=== PATIENT | female | born 1960 | race Caucasian/White ===

== ENCOUNTER 2020-10-09 09:27 | Inpatient (IN) ==
[2020-10-09] MEDS ORDERED: SODIUM CHLORIDE 0.9% 2,000 ML IV STA (09:44)
[2020-10-09] MEDS ORDERED: INSULIN REGULAR 100 UNIT/ML IV STA (09:46)
[2020-10-09] MEDS ORDERED: SODIUM BICARBONATE 50 MEQ/50 ML VIAL IV STA ×3 (09:46→09:55)
[2020-10-09] MEDS ORDERED: SODIUM BICARBONATE 50 MEQ/50 ML VIAL IV ONE ×3 (09:47→17:40)
[2020-10-09] MEDS ORDERED: INSULIN REGULAR 100 UNIT/ML ONE (09:48)
[2020-10-09 09:55] LABS: ABG HCO3 3.8 MMOL/L (20-26); ABG PCO2 12.7 MM HG (35-48); ABG PH 6.735 (7.35-7.45)
[2020-10-09 09:56] LABS: ABG Oxygen Saturation 96.2 % (95-100); ABG TCO2 1.8 MMOL/L (23-27)
[2020-10-09 09:58] LABS: ABG Base Excess 1.8 MMOL/L (-2.5-2.5)
[2020-10-09] MEDS ORDERED: NOREPINEPHRINE 4 MG/4 ML VIAL IV ONE (10:01)
[2020-10-09 10:02] LABS: Basophils # 0.3 10*3/uL (0.0-0.2); Basophils % 0.7 % (0.0-0.8); Eosinophils # 0.1 10*3/uL (0.0-0.87); Eosinophils % 0.3 % (0.00-10.9); Hematocrit 51.7 VOL% (35.7-47.0); Hemoglobin 15.2 GM/DL (12.0-16.0); Immature Granulocytes % 7.8 %; Immature Granulocytes Absolute 3.03 #; Lymphocytes # 5.4 10*3/uL (1.4-4.0); Lymphocytes % 13.9 % (21.3-54.2); Mean Corpuscular HGB Conc 29.4 GM/DL (32-36); Mean Platelet Volume 10.1 FL (9.6-12.0); Monocytes % 7.5 % (1.7-12.7); Neutrophils % 69.8 % (38.7-73.9); Platelet Count 464 T/CUMM (130-400); Red Blood Count 5.22 MC/CUMM (3.8-5.5); Red Cell Distribution Width 12.1 % (9.3-17.3); White Blood Count 38.8 T/CUMM (4-12)
[2020-10-09] MEDS ORDERED: cefTRIAXone 1,000 MG VIAL ONE (10:02)
[2020-10-09 10:11] LABS: PT Patient Result 10.4 SECS (9.8-11.9)
[2020-10-09] MEDS ORDERED: ETOMIDATE 20 MG/10 ML VIAL IV ONE (10:11)
[2020-10-09] MEDS ORDERED: ROCURONIUM 100 MG/10 ML VIAL IV ONE (10:11)
[2020-10-09] MEDS ORDERED: cefTRIAXone 2,000 MG in SODIUM CHLORIDE 0.9% 100 ML IV ONE (10:13)
[2020-10-09 10:14] LABS: Amorphous Crystals,Urine Few /HPF (Few); Bilirubin,Urine Negative (Negative); Blood, Urine Moderate mg/dL (Negative); Glucose,Urine (UA) >=500 mg/dL (Negative); Ketones,Urine 20 mg/dL (Negative); Mucus,Urine Occasional /LPF (Occasional); Nitrite,Urine Negative (Negative); Protein,Urine Negative; Squamous Epithelial Cell,Urine Occasional /HPF (0-10); Urine Appearance CLOUDY (Clear); Urine Color Yellow (Yellow); Urine Specific Gravity 1.022 (1.001-1.035); Urine Urobilinogen < 2.0 EU/DL (0.2-1.0)
[2020-10-09 10:20] LABS: Bilirubin,Total 0.4 MG/DL (0.2-1.0); Calcium 8.8 MG/DL (8.5-10.1); Osmolality,Calculated 322.8 MOS/KG (273-304)
[2020-10-09 10:24] LABS: Potassium 6.4 MMOL/L (3.5-5.1)
[2020-10-09] MEDS ORDERED: ALBUTEROL 2.5 MG/3 ML NEB RESP TX STA (10:25)
[2020-10-09 10:36] LABS: Band Neutrophils 17 % (0-10); Lymphocytes 15 % (20-55); Metamyelocytes 4 %; Myelocytes 2 %; Nucleated Red Blood Cells 1 (0-5); Platelet Estimate Normal; Segmented Neutrophils 56 % (50-85); Total Cells Counted 100
[2020-10-09 10:37] LABS: Atypical Lymphocytes Few; Macrocytosis Slight
[2020-10-09] MEDS ORDERED: SODIUM CHLORIDE 0.9% IV PRN (10:37)
[2020-10-09] MEDS ORDERED: SODIUM PHOSPHATE IV PRN (10:37)
[2020-10-09] MEDS ORDERED: SODIUM CHLORIDE 0.9% 1,000 ML IV ONE ×2 (10:37→17:15)
[2020-10-09] MEDS ORDERED: MAGNESIUM SULF RIDER 4 GM in PREMIX 1 EACH IV PRN (10:37)
[2020-10-09] MEDS ORDERED: DEXTROSE 50% 25 GM/50 ML VIAL IV PRN ×2 (10:37)
[2020-10-09] MEDS ORDERED: SODIUM BICARB INJ 100 MEQ in STERILE WATER INJ 400 ML IV PRN (10:37)
[2020-10-09] MEDS ORDERED: MAGNESIUM SULF RIDER 2 GM in PREMIX 1 EACH IV PRN (10:37)
[2020-10-09] MEDS ORDERED: CALCIUM GLUCONATE 2,000 MG in SODIUM CHLORIDE 0.9% 100 ML IV ONE (10:42)
[2020-10-09] MEDS ORDERED: HEPARIN DRIP 25,000 UNITS/500 ML PREMIX IV ONE (10:45)
[2020-10-09 11:09] LABS: Potassium 5.2 MMOL/L (3.5-5.1)
[2020-10-09] MEDS: INSULIN REGULAR DRIP 100 ML IV SCH (11:20)
[2020-10-09] MEDS: SODIUM CHLORIDE 0.9% 1,000 ML IV SCH ×2 (11:25→14:57)
[2020-10-09 11:48] LABS: ABG Oxygen Saturation 99.3 % (95-100); ABG PCO2 33.2 MM HG (35-48); ABG TCO2 5.1 MMOL/L (23-27)
[2020-10-09 11:50] LABS: ABG PH 6.777 (7.35-7.45)
[2020-10-09 11:51] LABS: ABG Base Excess 31.2 MMOL/L (-2.5-2.5); ABG HCO3 5.1 MMOL/L (20-26)
[2020-10-09] MEDS: NOREPINEPHRINE 8 MG in SODIUM CHLORIDE 0.9% 242 ML IV PRN ×3 (12:30→21:09)
[2020-10-09 12:56] LABS: ABG Base Excess -27.5 MMOL/L (-2.5-2.5); ABG HCO3 6.5 MMOL/L (20-26); ABG Oxygen Saturation 99.2 % (95-100); ABG PCO2 29.3 MM HG (35-48); ABG TCO2 5.7 MMOL/L (23-27)
[2020-10-09 12:58] LABS: ABG PH 6.901 (7.35-7.45)
[2020-10-09 13:20] LABS: Osmolality,Calculated 330.4 MOS/KG (273-304); Potassium 4.2 MMOL/L (3.5-5.1)
[2020-10-09] MEDS ORDERED: MIDAZOLAM 2 MG/2 ML VIAL IV PRN (13:51)
[2020-10-09] MEDS: SODIUM BICARB INJ 100 MEQ in STERILE WATER INJ 1,000 ML IV SCH (14:27)
[2020-10-09] MEDS: MIDAZOLAM 100 MG in SODIUM CHLORIDE 0.9% 80 ML IV PRN (14:45)
[2020-10-09 14:54] LABS: ABG Base Excess -24.8 MMOL/L (-2.5-2.5); ABG HCO3 4.5 MMOL/L (20-26); ABG Oxygen Saturation 98.7 % (95-100); ABG PO2 196.1 MM HG (80-95)
[2020-10-09 15:03] LABS: ABG PH 7.019 (7.35-7.45)
[2020-10-09 15:04] LABS: ABG PCO2 17.8 MM HG (35-48)
[2020-10-09] MEDS ORDERED: SODIUM CHLORIDE 0.9% 1,000 ML IV SCH (15:38)
[2020-10-09] MEDS: HEPARIN 5,000 UNIT/1 ML VIAL SUBCUT SCH ×2 (15:53→23:38)
[2020-10-09 17:24] LABS: ABG Base Excess -24.5 MMOL/L (-2.5-2.5); ABG Oxygen Saturation 98.2 % (95-100); ABG TCO2 4.4 MMOL/L (23-27)
[2020-10-09 17:29] LABS: ABG PCO2 14.6 MM HG (35-48); ABG PH 7.053 (7.35-7.45)
[2020-10-09 17:51] LABS: Calcium 7.7 MG/DL (8.5-10.1); Osmolality,Calculated 326.7 MOS/KG (273-304); Potassium 4.1 MMOL/L (3.5-5.1)
[2020-10-09 19:09] LABS: ABG Base Excess -22.5 MMOL/L (-2.5-2.5); ABG HCO3 4.4 MMOL/L (20-26); ABG Oxygen Saturation 98.3 % (95-100); ABG PO2 157.4 MM HG (80-95); ABG TCO2 4.9 MMOL/L (23-27)
[2020-10-09 19:12] LABS: ABG PH 7.132 (7.35-7.45)
[2020-10-09 19:13] LABS: ABG PCO2 13.6 MM HG (35-48)
[2020-10-09 19:28] LABS: Calcium 7.3 MG/DL (8.5-10.1); Osmolality,Calculated 327.1 MOS/KG (273-304); Potassium 3.7 MMOL/L (3.5-5.1)
[2020-10-09] MEDS: SODIUM CHLOR 0.45% KCL 20 MEQ 20 MEQ/1,000 ML BAG IV SCH (20:50)
[2020-10-09 21:06] LABS: ABG Base Excess -21.7 MMOL/L (-2.5-2.5); ABG HCO3 4.5 MMOL/L (20-26); ABG Oxygen Saturation 98.3 % (95-100); ABG PO2 164.4 MM HG (80-95); ABG TCO2 4.9 MMOL/L (23-27)
[2020-10-09 21:10] LABS: ABG PCO2 12.9 MM HG (35-48); ABG PH 7.164 (7.35-7.45)
[2020-10-09 23:00] LABS: Calcium 7.5 MG/DL (8.5-10.1); Osmolality,Calculated 324.9 MOS/KG (273-304); Potassium 3.8 MMOL/L (3.5-5.1)
[2020-10-10] MEDS: SODIUM CHLOR 0.45% KCL 20 MEQ 20 MEQ/1,000 ML BAG IV SCH ×3 (00:50→10:06)
[2020-10-10] MEDS: SODIUM BICARB INJ 100 MEQ in STERILE WATER INJ 1,000 ML IV SCH ×3 (00:52→13:44)
[2020-10-10] MEDS: NOREPINEPHRINE 8 MG in SODIUM CHLORIDE 0.9% 242 ML IV PRN ×2 (02:20→10:04)
[2020-10-10 03:13] LABS: Calcium 7.6 MG/DL (8.5-10.1); Potassium 3.8 MMOL/L (3.5-5.1)
[2020-10-10] MEDS ORDERED: SODIUM CHLORIDE 0.45% 1,000 ML IV SCH (03:38)
[2020-10-10] MEDS ORDERED: SODIUM CHLOR 0.45% KCL 20 MEQ 20 MEQ/1,000 ML BAG IV SCH (04:30)
[2020-10-10 05:32] LABS: ABG HCO3 12.4 MMOL/L (20-26); ABG Oxygen Saturation 99.5 % (95-100); ABG PH 7.293 (7.35-7.45); ABG TCO2 8.3 MMOL/L (23-27)
[2020-10-10 05:37] LABS: ABG PCO2 18.9 MM HG (35-48)
[2020-10-10 05:50] LABS: Basophils # 0.1 10*3/uL (0.0-0.2); Basophils % 0.2 % (0.0-0.8); Hematocrit 31.9 VOL% (35.7-47.0); Hemoglobin 11.3 GM/DL (12.0-16.0); Immature Granulocytes % 3.1 %; Immature Granulocytes Absolute 0.74 #; Lymphocytes # 0.8 10*3/uL (1.4-4.0); Lymphocytes % 3.3 % (21.3-54.2); Mean Corpuscular HGB Conc 35.4 GM/DL (32-36); Mean Corpuscular Volume 82.9 FL (87-102); Mean Platelet Volume 9.4 FL (9.6-12.0); Monocytes % 10.1 % (1.7-12.7); NRBC # 0.02 10*3/uL; Neutrophils % 83.3 % (38.7-73.9); Platelet Count 275 T/CUMM (130-400); Red Blood Count 3.85 MC/CUMM (3.8-5.5); Red Cell Distribution Width 12.5 % (9.3-17.3)
[2020-10-10 06:08] LABS: Alanine Aminotransferase 21 U/L (13-56); Albumin 2.5 G/DL (3.4-5.0); Alkaline Phosphatase 92 U/L (45-117); Aspartate Amino Transferase 22 U/L (0-37); Bilirubin,Total < 0.39 MG/DL (0.2-1.0); Blood Urea Nitrogen 28 MG/DL (7-18); Calcium 7.5 MG/DL (8.5-10.1); Carbon Dioxide 8 MMOL/L (21-32); Estimated Glom Filtration Rate 39 ML/MIN; Glucose 202 MG/DL (74-106); Potassium 3.8 MMOL/L (3.5-5.1); Sodium 150 MMOL/L (136-145); Total Protein 5.6 G/DL (6.4-8.3)
[2020-10-10 06:13] LABS: Band Neutrophils 9 % (0-10); Lymphocytes 2 % (20-55); Segmented Neutrophils 83 % (50-85); Total Cells Counted 100
[2020-10-10 06:14] LABS: Hypochromasia Slight; Microcytosis 1+; Platelet Estimate Normal
[2020-10-10] MEDS: HEPARIN 5,000 UNIT/1 ML VIAL SUBCUT SCH ×3 (06:33→22:32)
[2020-10-10] MEDS: PANTOPRAZOLE 40 MG VIAL IV SCH (08:30)
[2020-10-10] MEDS ORDERED: MAGNESIUM SULF RIDER 4 GM in PREMIX 1 EACH IV ONE (08:49)
[2020-10-10] MEDS: DEXT 5% LACT RING KCL 20 MEQ 20 MEQ/1,000 ML BAG IV SCH ×3 (09:58→23:49)
[2020-10-10] MEDS ORDERED: POTASSIUM PHOSPHATE 30 MMOL in SODIUM CHLORIDE 0.9% 250 ML IV ONE (10:00)
[2020-10-10] MEDS: SODIUM CHLORIDE 0.45% 1,000 ML IV SCH (10:06)
[2020-10-10] MEDS: MIDAZOLAM 100 MG in SODIUM CHLORIDE 0.9% 80 ML IV PRN (11:30)
[2020-10-10 12:57] LABS: Calcium 7.4 MG/DL (8.5-10.1); Potassium 3.7 MMOL/L (3.5-5.1)
[2020-10-10] MEDS: INSULIN REGULAR DRIP 100 ML IV SCH ×2 (13:43→19:14)
[2020-10-10 19:20] LABS: Calcium 7.4 MG/DL (8.5-10.1); Osmolality,Calculated 300.1 MOS/KG (273-304); Potassium 3.4 MMOL/L (3.5-5.1)
[2020-10-10] MEDS: POTASSIUM CHLORIDE RIDER 10 MEQ in PREMIX 1 EACH IV PRN ×3 (21:02→23:18)
[2020-10-11 00:43] LABS: Calcium 7.6 MG/DL (8.5-10.1); Osmolality,Calculated 297.1 MOS/KG (273-304); Potassium 3.7 MMOL/L (3.5-5.1)
[2020-10-11] MEDS: POTASSIUM CHLORIDE RIDER 10 MEQ in PREMIX 1 EACH IV PRN ×4 (01:33→16:31)
[2020-10-11] MEDS: MIDAZOLAM 100 MG in SODIUM CHLORIDE 0.9% 80 ML IV PRN (02:40)
[2020-10-11] MEDS ORDERED: INSULIN REGULAR 100 UNIT/ML SUBCUT SCH (04:00)
[2020-10-11 05:04] LABS: ABG Base Excess -5.4 MMOL/L (-2.5-2.5); ABG Oxygen Saturation 99.3 % (95-100); ABG PCO2 26.7 MM HG (35-48); ABG PH 7.431 (7.35-7.45); ABG TCO2 16.2 MMOL/L (23-27)
[2020-10-11] MEDS: HEPARIN 5,000 UNIT/1 ML VIAL SUBCUT SCH ×3 (06:20→22:39)
[2020-10-11] MEDS: DEXT 5% LACT RING KCL 20 MEQ 20 MEQ/1,000 ML BAG IV SCH ×3 (06:39→19:36)
[2020-10-11 06:51] LABS: Calcium 7.4 MG/DL (8.5-10.1); Osmolality,Calculated 305.4 MOS/KG (273-304); Potassium 4.4 MMOL/L (3.5-5.1)
[2020-10-11] MEDS ORDERED: INSULIN REGULAR 100 UNIT/ML IV ONE (07:13)
[2020-10-11] MEDS: INSULIN REGULAR DRIP 100 ML IV PRN ×2 (07:20→20:28)
[2020-10-11] MEDS: PANTOPRAZOLE 40 MG VIAL IV SCH (08:37)
[2020-10-11 12:57] LABS: Calcium 7.8 MG/DL (8.5-10.1); Potassium 3.9 MMOL/L (3.5-5.1)
[2020-10-11 19:31] LABS: Calcium 7.9 MG/DL (8.5-10.1); Osmolality,Calculated 300.3 MOS/KG (273-304); Potassium 4.2 MMOL/L (3.5-5.1)
[2020-10-11] MEDS ORDERED: HALOPERIDOL 5 MG/ML AMP IV ONE (22:26)
[2020-10-11] MEDS ORDERED: LORazepam 2 MG/1 ML VIAL IV ONE (23:23)
[2020-10-12] MEDS: LORazepam 2 MG/1 ML VIAL IV PRN ×3 (01:45→11:43)
[2020-10-12] MEDS: DEXT 5% LACT RING KCL 20 MEQ 20 MEQ/1,000 ML BAG IV SCH ×4 (02:25→17:38)
[2020-10-12 05:21] LABS: Basophils % 0.3 % (0.0-0.8); Eosinophils % 0.1 % (0.00-10.9); Hematocrit 29.6 VOL% (35.7-47.0); Immature Granulocytes % 0.9 %; Lymphocytes # 2.5 10*3/uL (1.4-4.0); Lymphocytes % 21.6 % (21.3-54.2); Mean Corpuscular HGB Conc 33.8 GM/DL (32-36); Mean Corpuscular Volume 85.3 FL (87-102); Mean Platelet Volume 9.4 FL (9.6-12.0); Monocytes % 4.7 % (1.7-12.7); Neutrophils % 72.4 % (38.7-73.9); Platelet Count 186 T/CUMM (130-400); Red Blood Count 3.47 MC/CUMM (3.8-5.5); Red Cell Distribution Width 13.7 % (9.3-17.3); White Blood Count 11.4 T/CUMM (4-12)
[2020-10-12 05:37] LABS: Albumin 2.4 G/DL (3.4-5.0); Bilirubin,Total 0.8 MG/DL (0.2-1.0); Calcium 8.1 MG/DL (8.5-10.1); Osmolality,Calculated 293.3 MOS/KG (273-304); Potassium 3.7 MMOL/L (3.5-5.1); Total Protein 5.1 G/DL (6.4-8.3)
[2020-10-12] MEDS: HEPARIN 5,000 UNIT/1 ML VIAL SUBCUT SCH ×3 (06:26→23:38)
[2020-10-12] MEDS: POTASSIUM CHLORIDE RIDER 10 MEQ in PREMIX 1 EACH IV PRN ×2 (06:34→07:40)
[2020-10-12] MEDS: DEXMEDETOMIDINE 200 MCG in SODIUM CHLORIDE 0.9% 48 ML IV PRN ×2 (07:10→14:49)
[2020-10-12] MEDS: INSULIN GLARGINE 100 UNIT/ML SUBCUT SCH (09:34)
[2020-10-12] MEDS: PANTOPRAZOLE 40 MG VIAL IV SCH (09:34)
[2020-10-12] MEDS ORDERED: DOPamine 800 MG/250 ML PREMIX IV PRN (13:05)
[2020-10-12] MEDS ORDERED: DOPamine 800 MG/250 ML PREMIX IV ONE (13:06)
[2020-10-13] MEDS: DEXT 5% LACT RING KCL 20 MEQ 20 MEQ/1,000 ML BAG IV SCH ×5 (00:37→22:00)
[2020-10-13] MEDS: DEXMEDETOMIDINE 200 MCG in SODIUM CHLORIDE 0.9% 48 ML IV PRN (02:00)
[2020-10-13 04:35] LABS: Basophils % 0.6 % (0.0-0.8); Eosinophils # 0.1 10*3/uL (0.0-0.87); Hemoglobin 10.5 GM/DL (12.0-16.0); Immature Granulocytes % 0.3 %; Immature Granulocytes Absolute 0.02 #; Lymphocytes % 27.8 % (21.3-54.2); Mean Corpuscular HGB Conc 33.9 GM/DL (32-36); Mean Corpuscular Volume 84.9 FL (87-102); Mean Platelet Volume 9.7 FL (9.6-12.0); Monocytes % 6.9 % (1.7-12.7); Neutrophils % 63.4 % (38.7-73.9); Platelet Count 187 T/CUMM (130-400); Red Blood Count 3.65 MC/CUMM (3.8-5.5); Red Cell Distribution Width 13.2 % (9.3-17.3); White Blood Count 7.1 T/CUMM (4-12)
[2020-10-13 05:12] LABS: Albumin 2.4 G/DL (3.4-5.0); Bilirubin,Total 0.8 MG/DL (0.2-1.0); Calcium 8.6 MG/DL (8.5-10.1); Osmolality,Calculated 290.7 MOS/KG (273-304); Potassium 3.6 MMOL/L (3.5-5.1); Total Protein 5.4 G/DL (6.4-8.3)
[2020-10-13] MEDS: HEPARIN 5,000 UNIT/1 ML VIAL SUBCUT SCH ×2 (06:50→15:22)
[2020-10-13] MEDS: POTASSIUM CHLORIDE RIDER 10 MEQ in PREMIX 1 EACH IV PRN (07:33)
[2020-10-13] MEDS: PANTOPRAZOLE 40 MG VIAL IV SCH (09:06)
[2020-10-13] MEDS: INSULIN GLARGINE 100 UNIT/ML SUBCUT SCH (09:06)
[2020-10-13] MEDS: INSULIN REGULAR DRIP 100 ML IV PRN (15:17)
[2020-10-13] MEDS ORDERED: PHENOL 1.4% THROAT SPRAY 177 ML BOTTLE PO PRN (15:56)
[2020-10-13] MEDS: LORazepam 2 MG/1 ML VIAL IV PRN (21:25)
[2020-10-14] MEDS: HEPARIN 5,000 UNIT/1 ML VIAL SUBCUT SCH ×3 (00:20→15:05)
[2020-10-14] MEDS: DEXT 5% LACT RING KCL 20 MEQ 20 MEQ/1,000 ML BAG IV SCH ×3 (03:00→11:00)
[2020-10-14 04:17] LABS: Basophils % 0.4 % (0.0-0.8); Eosinophils # 0.1 10*3/uL (0.0-0.87); Eosinophils % 1.1 % (0.00-10.9); Hematocrit 33.3 VOL% (35.7-47.0); Hemoglobin 10.5 GM/DL (12.0-16.0); Immature Granulocytes % 0.6 %; Immature Granulocytes Absolute 0.06 #; Lymphocytes # 2.6 10*3/uL (1.4-4.0); Lymphocytes % 26.4 % (21.3-54.2); Mean Corpuscular HGB Conc 31.5 GM/DL (32-36); Mean Platelet Volume 9.4 FL (9.6-12.0); Monocytes % 8.1 % (1.7-12.7); Neutrophils % 63.4 % (38.7-73.9); Platelet Count 210 T/CUMM (130-400); Red Blood Count 3.74 MC/CUMM (3.8-5.5); Red Cell Distribution Width 12.7 % (9.3-17.3); White Blood Count 9.9 T/CUMM (4-12)
[2020-10-14 04:40] LABS: Albumin 2.3 G/DL (3.4-5.0); Bilirubin,Total 0.4 MG/DL (0.2-1.0); Calcium 8.5 MG/DL (8.5-10.1); Osmolality,Calculated 286.8 MOS/KG (273-304); Potassium 3.6 MMOL/L (3.5-5.1); Total Protein 5.4 G/DL (6.4-8.3)
[2020-10-14] MEDS: POTASSIUM CHLORIDE RIDER 10 MEQ in PREMIX 1 EACH IV PRN (06:47)
[2020-10-14] MEDS: INSULIN GLARGINE 100 UNIT/ML SUBCUT SCH (08:40)
[2020-10-14] MEDS ORDERED: PANTOPRAZOLE 40 MG TABLET PO SCH (09:00)
[2020-10-14] MEDS ORDERED: INSULIN LISPRO 100 UNIT/ML SUBCUT SCH (10:00)
[2020-10-14] MEDS: FAMOTIDINE 20 MG TABLET PO SCH (11:40)
[2020-10-14] MEDS: INSULIN LISPRO 100 UNIT/ML SUBCUT SCH ×3 (11:40→22:10)
[2020-10-15] MEDS: INSULIN LISPRO 100 UNIT/ML SUBCUT SCH ×6 (00:31→22:14)
[2020-10-15] MEDS ORDERED: ZALEPLON 5 MG CAPSULE PO ONE (00:34)
[2020-10-15] MEDS: HEPARIN 5,000 UNIT/1 ML VIAL SUBCUT SCH ×4 (00:43→21:39)
[2020-10-15 04:49] LABS: Calcium 8.6 MG/DL (8.5-10.1); Osmolality,Calculated 279.5 MOS/KG (273-304); Potassium 3.9 MMOL/L (3.5-5.1)
[2020-10-15] MEDS: INSULIN GLARGINE 100 UNIT/ML SUBCUT SCH (08:31)
[2020-10-15] MEDS: FAMOTIDINE 20 MG TABLET PO SCH (08:31)
[2020-10-15] MEDS ORDERED: GLUCAGON 1 MG VIAL IM PRN (11:12)
[2020-10-15] MEDS: carvediloL 3.125 MG TABLET PO SCH (20:43)
[2020-10-16 06:33] LABS: Basophils # 0.1 10*3/uL (0.0-0.2); Basophils % 0.8 % (0.0-0.8); Eosinophils # 0.3 10*3/uL (0.0-0.87); Eosinophils % 3.2 % (0.00-10.9); Hematocrit 34.7 VOL% (35.7-47.0); Immature Granulocytes % 4.4 %; Immature Granulocytes Absolute 0.39 #; Lymphocytes # 3.7 10*3/uL (1.4-4.0); Lymphocytes % 42.3 % (21.3-54.2); Mean Corpuscular HGB Conc 31.7 GM/DL (32-36); Mean Platelet Volume 9.3 FL (9.6-12.0); Monocytes % 13.1 % (1.7-12.7); Neutrophils % 36.2 % (38.7-73.9); Platelet Count 339 T/CUMM (130-400); Red Cell Distribution Width 12.6 % (9.3-17.3); White Blood Count 8.8 T/CUMM (4-12)
[2020-10-16 06:46] LABS: Calcium 8.3 MG/DL (8.5-10.1); Osmolality,Calculated 277.5 MOS/KG (273-304); Potassium 3.1 MMOL/L (3.5-5.1)
[2020-10-16] MEDS: HEPARIN 5,000 UNIT/1 ML VIAL SUBCUT SCH ×3 (06:48→22:35)
[2020-10-16 07:02] LABS: Atypical Lymphocytes Few; Band Neutrophils 5 % (0-10); Eosinophils 5 % (0-10); Lymphocytes 40 % (20-55); Myelocytes 2 %; Segmented Neutrophils 38 % (50-85); Total Cells Counted 100
[2020-10-16 07:03] LABS: Hypochromasia 1+; Microcytosis 1+
[2020-10-16 07:04] LABS: Platelet Estimate Normal
[2020-10-16] MEDS: FAMOTIDINE 20 MG TABLET PO SCH (09:07)
[2020-10-16] MEDS: carvediloL 3.125 MG TABLET PO SCH ×2 (09:07→20:10)
[2020-10-16] MEDS: INSULIN GLARGINE 100 UNIT/ML SUBCUT SCH (09:07)
[2020-10-16] MEDS: POTASSIUM CHLORIDE RIDER 10 MEQ in PREMIX 1 EACH IV PRN (09:09)
[2020-10-16] MEDS: POTASSIUM CHLORIDE 20 MEQ TABLET PO SCH ×2 (10:30→20:10)
[2020-10-16] MEDS: INSULIN LISPRO 100 UNIT/ML SUBCUT SCH ×5 (11:30→22:32)
[2020-10-17 05:11] LABS: Calcium 8.4 MG/DL (8.5-10.1); Osmolality,Calculated 278.5 MOS/KG (273-304); Potassium 3.8 MMOL/L (3.5-5.1)
[2020-10-17] MEDS: HEPARIN 5,000 UNIT/1 ML VIAL SUBCUT SCH (06:49)
[2020-10-17 07:57] VITALS: BP 134/76
[2020-10-17] MEDS: INSULIN LISPRO 100 UNIT/ML SUBCUT SCH (09:05)
[2020-10-17] MEDS: INSULIN GLARGINE 100 UNIT/ML SUBCUT SCH (09:11)
[2020-10-17] MEDS: POTASSIUM CHLORIDE 20 MEQ TABLET PO SCH (09:11)
[2020-10-17] MEDS: carvediloL 3.125 MG TABLET PO SCH (09:11)
[2020-10-17] MEDS: FAMOTIDINE 20 MG TABLET PO SCH (09:12)
== END 2020-10-17 11:00 | disposition home or self-care (01) | DRG 637 ==
LOC: EDBD → EDUNIT# → N.ED 09:27 → N.EDINP 10:37 → SUATTDRO 10:37 → N.ICU 12:00 → N.5E 10-15 13:07
PROVIDERS: ADMIT Internal Medicine; ATTEND Family Medicine